=== PATIENT | male | born 1960 | race Caucasian/White ===

== ENCOUNTER 2021-07-08 17:02 | Inpatient (IN) | payer OTHER ==
[~2021-07-08] VITALS: Ht 175.3 cm; Wt 111.4 kg
[2021-07-08] VITALS (22 sets, daily range): BP systolic 141–184; BP diastolic 84–125
[2021-07-08] MEDS ORDERED: TICAGRELOR 90 MG TABLET ONE (17:05)
[2021-07-08] MEDS ORDERED: NITROGLYCERIN 2% (1 GM=INCH) PACKET TP ONE ×2 (17:05→17:30)
[2021-07-08] MEDS ORDERED: ONDANSETRON HCL 4 MG/2 ML VIAL ONE (17:08)
[2021-07-08] MEDS ORDERED: MORPHINE SULFATE 4 MG/ML SYRINGE ONE (17:08)
[2021-07-08] MEDS ORDERED: NITROGLYCERIN 0.4 MG SUBLINGUAL TABLET #25 SL ONE ×2 (17:13→17:30)
[2021-07-08] MEDS ORDERED: METOPROLOL TARTRATE 5 MG/5 ML VIAL ONE (17:20)
[2021-07-08] MEDS ORDERED: METOPROLOL TARTRATE 5 MG/5 ML VIAL IVP ONE (17:30)
[2021-07-08] MEDS ORDERED: TICAGRELOR 90 MG TABLET PO ONE (17:30)
[2021-07-08] MEDS ORDERED: ASPIRIN 81 MG CHEWABLE TABLET PO ONE (17:30)
[2021-07-08] MEDS ORDERED: MORPHINE SULFATE 4 MG/ML SYRINGE IVP ONE (17:30)
[2021-07-08] MEDS ORDERED: LIDOCAINE/PF 1% 30 ML VIAL ONE (17:40)
[2021-07-08] MEDS ORDERED: IOHEXOL 300 MG/ML 100 ML VIAL ONE (17:40)
[2021-07-08] MEDS ORDERED: SODIUM BICARBONATE 50 MEQ/50 ML VIAL ONE (17:40)
[2021-07-08] MEDS ORDERED: IOHEXOL 300 MG/ML 50 ML VIAL ONE ×3 (17:40→18:44)
[2021-07-08] MEDS ORDERED: HEPARIN SODIUM 1000 UNITS/NS 1,000 ML ONE (17:40)
[2021-07-08] MEDS ORDERED: VERAPAMIL HCL 2.5 MG/ML 2 ML VIAL ONE (17:40)
[2021-07-08] MEDS ORDERED: NITROGLYCERIN 50 MG/D5% WATER 250 ML ONE (17:40)
[2021-07-08] MEDS ORDERED: IOHEXOL 300 MG/ML 150 ML VIAL ONE (17:40)
[2021-07-08] MEDS ORDERED: FentaNYL CITRATE PF 100 MCG/2 ML VIAL ONE (17:57)
[2021-07-08] MEDS ORDERED: MIDAZOLAM HCL 2 MG/2 ML VIAL ONE (17:57)
[2021-07-08] MEDS ORDERED: LIDOCAINE 1% 30 ML/SOD BICARB 8.4% 4 ML SQ ONE (18:15)
[2021-07-08] MEDS ORDERED: HEPARIN SODIUM 1000 UNITS/NS 1,000 ML IARTER ONE (18:15)
[2021-07-08] MEDS ORDERED: IOHEXOL 300 MG/ML 150 ML VIAL IARTER ONE (18:15)
[2021-07-08] MEDS ORDERED: FentaNYL CITRATE PF 100 MCG/2 ML VIAL IVP ONE (18:15)
[2021-07-08] MEDS ORDERED: HEPARIN SODIUM,PORCINE 5,000 UNITS/ML VIAL IVP ONE (18:15)
[2021-07-08] MEDS ORDERED: IOHEXOL 300 MG/ML 50 ML VIAL IARTER ONE (18:15)
[2021-07-08] MEDS ORDERED: VERAPAMIL HCL 2.5 MG/ML 2 ML VIAL ICOR ONE (18:30)
[2021-07-08] MEDS ORDERED: NITROGLYCERIN/D5W 50 MG/250 ML IV BOTTLE ICOR ONE (18:30)
[2021-07-08 18:46] LABS: BASOPHILS % (AUTO) 0.4 % (0.0-2.0); EOSINOPHILS % (AUTO) 1.2 % (1.0-6.0); HEMATOCRIT 42.6 % (41-53); LYMPHOCYTES # (AUTO) 1.5 K/uL (1.0-4.8); MEAN CORPUSCULAR HEMOGLOBIN 32.5 pg (26.0-34.0); MEAN CORPUSCULAR HGB CONC 32.9 G/dL (31.0-37.0); MEAN CORPUSCULAR VOLUME 99 fL (80-100); MONOCYTES # (AUTO) 0.6 K/uL (0.1-1.0); NEUTROPHILS # (AUTO) 6.9 K/uL (1.8-7.7); NEUTROPHILS % (AUTO) 75.4 % (40.0-70.0); PLATELET COUNT (AUTO) 150 K/uL (150-450); RED BLOOD CELL COUNT(AUTO) 4.31 MIL/uL (4.50-5.90); RED CELL DISTRIBUTION WIDTH 14.7 % (11.5-14.5)
[2021-07-08 18:58] LABS: CALCIUM, TOTAL 8.2 mg/dL (8.8-10.5); CREATININE 2.32 mg/dL (0.60-1.30); POTASSIUM 4.4 mmol/L (3.5-5.1)
[2021-07-08 19:14] LABS: INR 1.3 (0.9-1.1); PROTHROMBIN TIME 13.4 SEC (9.4-11.6)
[2021-07-08] MEDS ORDERED: ACETAMINOPHEN 325 MG TABLET PO PRN ×2 (19:15→21:30)
[2021-07-08] MEDS ORDERED: MORPHINE SULFATE 2 MG/ML SYRINGE IVP PRN ×2 (19:15→21:30)
[2021-07-08] MEDS ORDERED: DEXTROSE 50%-WATER 25 GM/50 ML SYRINGE IVP PRN (19:15)
[2021-07-08 19:23] LABS: ALBUMIN 3.1 g/dL (3.4-5.0); BILIRUBIN,TOTAL 0.6 mg/dL (0.1-1.0); MAGNESIUM 1.7 mg/dL (1.80-2.40); TOTAL PROTEIN, SERUM 6.6 g/dL (6.4-8.2)
[2021-07-08] MEDS ORDERED: ATORVASTATIN CALCIUM 40 MG TABLET PO SCH (21:00)
[2021-07-08] MEDS ORDERED: ONDANSETRON HCL 4 MG/2 ML VIAL IVP PRN (21:30)
[2021-07-08] MEDS ORDERED: BISACODYL 10 MG RECTAL RECTAL SUPPOSITORY PR PRN (21:30)
[2021-07-08] MEDS ORDERED: HydrALAZINE HCL 20 MG/ML VIAL IVP PRN (21:30)
[2021-07-08] MEDS ORDERED: AmLODIPine BESYLATE 5 MG TABLET PO ONE (21:30)
[2021-07-08] MEDS ORDERED: MAGNESIUM HYDROXIDE SUSPENSION 30 ML UDCUP PO PRN (21:30)
[2021-07-08] MEDS: TICAGRELOR 90 MG TABLET PO SCH (21:59)
[2021-07-08] MEDS: INSULIN LISPRO 100 UNITS/ML SQ PRN (22:00)
[2021-07-08 23:21] LABS: GLUCOSE,POINT OF CARE 189 MG/DL (70-110)
[2021-07-09] VITALS (21 sets, daily range): BP systolic 113–158; BP diastolic 64–117
[2021-07-09] MEDS: HYDROCODONE/ACETAMINOPHEN 5-325 MG TABLET PO PRN (02:34)
[2021-07-09] MEDS: ZOLPIDEM TARTRATE 5 MG TABLET PO PRN ×2 (02:34→21:25)
[2021-07-09 06:12] LABS: BASOPHILS % (AUTO) 0.2 % (0.0-2.0); EOSINOPHILS % (AUTO) 0.8 % (1.0-6.0); HEMATOCRIT 45.6 % (41-53); HEMOGLOBIN 15.3 g/dL (13.5-17.5); LYMPHOCYTES # (AUTO) 1.5 K/uL (1.0-4.8); LYMPHOCYTES % (AUTO) 15.3 % (22.0-44.0); MEAN CORPUSCULAR HEMOGLOBIN 33.1 pg (26.0-34.0); MEAN CORPUSCULAR HGB CONC 33.6 G/dL (31.0-37.0); MEAN CORPUSCULAR VOLUME 99 fL (80-100); NEUTROPHILS # (AUTO) 7.2 K/uL (1.8-7.7); NEUTROPHILS % (AUTO) 73.7 % (40.0-70.0); PLATELET COUNT (AUTO) 153 K/uL (150-450); RED BLOOD CELL COUNT(AUTO) 4.62 MIL/uL (4.50-5.90)
[2021-07-09 06:29] LABS: HEMOGLOBIN A1C 7.3 % (3.8-5.6)
[2021-07-09 06:41] LABS: GLUCOSE,POINT OF CARE 170 MG/DL (70-110)
[2021-07-09] MEDS: INSULIN LISPRO 100 UNITS/ML SQ PRN ×3 (06:44→20:56)
[2021-07-09] MEDS ORDERED: PNEUMOCOCCAL VACCINE POLYVALENT 0.5 ML VIAL [PPSV23] IM. ONE (06:45)
[2021-07-09 07:03] LABS: ALBUMIN 3.5 g/dL (3.4-5.0); BILIRUBIN,TOTAL 0.7 mg/dL (0.1-1.0); CALCIUM, TOTAL 8.6 mg/dL (8.8-10.5); CHOL/HDL RATIO 4.6 (4.2-7.3); CREATININE 2.16 mg/dL (0.60-1.30); POTASSIUM 4.3 mmol/L (3.5-5.1); TOTAL PROTEIN, SERUM 7.5 g/dL (6.4-8.2)
[2021-07-09] MEDS: TICAGRELOR 90 MG TABLET PO SCH ×2 (07:38→20:38)
[2021-07-09] MEDS: METOPROLOL SUCCINATE 50 MG ER TABLET PO SCH (07:38)
[2021-07-09] MEDS: DOCUSATE SODIUM 100 MG CAPSULE PO SCH ×3 (07:38→20:47)
[2021-07-09] MEDS: AmLODIPine BESYLATE 5 MG TABLET PO SCH ×2 (07:38→08:30)
[2021-07-09] MEDS: PANTOPRAZOLE SODIUM 40 MG DR TABLET PO SCH (07:38)
[2021-07-09] MEDS: ASPIRIN 81 MG CHEWABLE TABLET PO SCH (07:38)
[2021-07-09] MEDS ORDERED: LOSARTAN POTASSIUM 50 MG TABLET PO SCH (09:00)
[2021-07-09] MEDS ORDERED: LOSARTAN POTASSIUM 50 MG TABLET PO ONE (10:15)
[2021-07-09 12:26] LABS: GLUCOSE,POINT OF CARE 165 MG/DL (70-110)
[2021-07-09] MEDS: ATORVASTATIN CALCIUM 40 MG TABLET PO SCH (20:38)
[2021-07-09 23:10] LABS: GLUCOMETER DEV NAME(LOC) 5N.1C; GLUCOSE,POINT OF CARE 133 MG/DL (70-110)
[2021-07-09 23:10] LABS: GLUCOMETER DEV NAME(LOC) 5N.1C; GLUCOSE,POINT OF CARE 176 MG/DL (70-110)
[2021-07-10 05:14] VITALS: BP 109/47
[2021-07-10 05:19] LABS: BASOPHILS % (AUTO) 0.7 % (0.0-2.0); HEMATOCRIT 45.3 % (41-53); HEMOGLOBIN 15.2 g/dL (13.5-17.5); LYMPHOCYTES # (AUTO) 1.6 K/uL (1.0-4.8); LYMPHOCYTES % (AUTO) 17.7 % (22.0-44.0); MEAN CORPUSCULAR HEMOGLOBIN 33.4 pg (26.0-34.0); MEAN CORPUSCULAR HGB CONC 33.5 G/dL (31.0-37.0); MEAN CORPUSCULAR VOLUME 100 fL (80-100); MONOCYTES % (AUTO) 11.7 % (2.0-9.0); NEUTROPHILS # (AUTO) 6.1 K/uL (1.8-7.7); NEUTROPHILS % (AUTO) 67.9 % (40.0-70.0); PLATELET COUNT (AUTO) 143 K/uL (150-450); RED BLOOD CELL COUNT(AUTO) 4.55 MIL/uL (4.50-5.90); RED CELL DISTRIBUTION WIDTH 15.1 % (11.5-14.5)
[2021-07-10 05:36] LABS: ALBUMIN 3.3 g/dL (3.4-5.0); BILIRUBIN,TOTAL 0.7 mg/dL (0.1-1.0); CALCIUM, TOTAL 8.7 mg/dL (8.8-10.5); CREATININE 2.65 mg/dL (0.60-1.30); POTASSIUM 4.8 mmol/L (3.5-5.1); TOTAL PROTEIN, SERUM 7.2 g/dL (6.4-8.2)
[2021-07-10 06:11] LABS: GLUCOMETER DEV NAME(LOC) 5S.1B; GLUCOSE,POINT OF CARE 124 MG/DL (70-110)
[2021-07-10 08:30] VITALS: BP 121/85
[2021-07-10] MEDS: TICAGRELOR 90 MG TABLET PO SCH ×2 (08:43→21:27)
[2021-07-10] MEDS: ASPIRIN 81 MG CHEWABLE TABLET PO SCH (08:43)
[2021-07-10] MEDS: PANTOPRAZOLE SODIUM 40 MG DR TABLET PO SCH (08:44)
[2021-07-10] MEDS: DOCUSATE SODIUM 100 MG CAPSULE PO SCH ×2 (08:44→21:28)
[2021-07-10] MEDS: METOPROLOL SUCCINATE 50 MG ER TABLET PO SCH (08:51)
[2021-07-10] MEDS: AmLODIPine BESYLATE 5 MG TABLET PO SCH (08:53)
[2021-07-10] MEDS ORDERED: LOSARTAN POTASSIUM 50 MG TABLET PO SCH (09:00)
[2021-07-10 11:40] VITALS: BP 116/87
[2021-07-10] MEDS: INSULIN LISPRO 100 UNITS/ML SQ PRN ×2 (12:03→21:47)
[2021-07-10 13:21] LABS: GLUCOMETER DEV NAME(LOC) 5S.1B; GLUCOSE,POINT OF CARE 162 MG/DL (70-110)
[2021-07-10 15:59] VITALS: BP 117/89
[2021-07-10 19:45] VITALS: BP 109/78
[2021-07-10] MEDS: HYDROCODONE/ACETAMINOPHEN 5-325 MG TABLET PO PRN (21:27)
[2021-07-10] MEDS: ATORVASTATIN CALCIUM 40 MG TABLET PO SCH (21:28)
[2021-07-10 22:06] LABS: GLUCOMETER DEV NAME(LOC) 5N.3; GLUCOSE,POINT OF CARE 145 MG/DL (70-110)
[2021-07-10] MEDS: ZOLPIDEM TARTRATE 5 MG TABLET PO PRN (22:09)
[2021-07-10 23:47] VITALS: BP 119/54
[2021-07-11 01:41] LABS: GLUCOMETER DEV NAME(LOC) 5N.1C; GLUCOSE,POINT OF CARE 119 MG/DL (70-110)
[2021-07-11 04:25] VITALS: BP 100/66
[2021-07-11 06:06] LABS: GLUCOMETER DEV NAME(LOC) 5N.1C; GLUCOSE,POINT OF CARE 131 MG/DL (70-110)
[2021-07-11 07:30] VITALS: BP 106/64
[2021-07-11] MEDS: AmLODIPine BESYLATE 5 MG TABLET PO SCH (08:01)
[2021-07-11] MEDS: ASPIRIN 81 MG CHEWABLE TABLET PO SCH (08:01)
[2021-07-11] MEDS: PANTOPRAZOLE SODIUM 40 MG DR TABLET PO SCH (08:01)
[2021-07-11] MEDS: METOPROLOL SUCCINATE 50 MG ER TABLET PO SCH (08:01)
[2021-07-11] MEDS: TICAGRELOR 90 MG TABLET PO SCH (08:01)
[2021-07-11] MEDS: DOCUSATE SODIUM 100 MG CAPSULE PO SCH (08:02)
[2021-07-11 11:20] VITALS: BP 115/83
[2021-07-11] MEDS: INSULIN LISPRO 100 UNITS/ML SQ PRN (11:37)
[2021-07-11 11:41] LABS: GLUCOMETER DEV NAME(LOC) 5S.1B; GLUCOSE,POINT OF CARE 174 MG/DL (70-110)
[2021-07-11 13:15] LABS: CREATININE 3.03 mg/dL (0.60-1.30); POTASSIUM 4.3 mmol/L (3.5-5.1)
[2021-07-11] MEDS ORDERED: ASPI-1444 PO (13:20)
[2021-07-11] MEDS ORDERED: ATOR40TA28 PO (13:20)
[2021-07-11] MEDS ORDERED: METO-558 PO (13:21)
[2021-07-11] MEDS ORDERED: AMLO-257 PO (13:21)
[2021-07-11] MEDS ORDERED: TICA90TA PO (13:22)
[2021-07-11 13:35] LABS: COVID AG,FIA SOURCE NASOPHARYNGEAL
== END 2021-07-11 15:55 | DRG 246 ==
LOC: EDBD 17:02 → EMS 17:02 → ICU 17:39 → 5S 07-09 12:55
PROVIDERS: ADMIT Internal Medicine; ATTEND Internal Medicine
PROC: 4A023N7 Measurement of Cardiac Sampling and Pressure, Left Heart, Percutaneous Approach (ICD-10-PCS; principal; 2021-07-08)
PROC: 027036Z Dilation of Coronary Artery, One Artery with Three Drug-eluting Intraluminal Devices, Percutaneous Approach (ICD-10-PCS; 2021-07-08)
PROC: B2111ZZ Fluoroscopy of Multiple Coronary Arteries using Low Osmolar Contrast (ICD-10-PCS; 2021-07-08)
PROC: B2151ZZ Fluoroscopy of Left Heart using Low Osmolar Contrast (ICD-10-PCS; 2021-07-08)
DX: I21.09 ST elevation (STEMI) myocardial infarction involving other coronary artery of anterior wall (principal); N17.0 Acute kidney failure with tubular necrosis; I50.31 Acute diastolic (congestive) heart failure; E87.2 Acidosis; I13.0 Hypertensive heart and chronic kidney disease with heart failure and stage 1 through stage 4 chronic kidney disease, or unspecified chronic kidney disease; E11.22 Type 2 diabetes mellitus with diabetic chronic kidney disease; E66.9 Obesity, unspecified; E78.5 Hyperlipidemia, unspecified; Z20.822 Contact with and (suspected) exposure to COVID-19; N14.1 Nephropathy induced by other drugs, medicaments and biological substances; T50.8X5A Adverse effect of diagnostic agents, initial encounter; E88.81 Metabolic syndrome and other insulin resistance; I25.10 Atherosclerotic heart disease of native coronary artery without angina pectoris; N18.30 Chronic kidney disease, stage 3 unspecified; Z80.3 Family history of malignant neoplasm of breast; I25.2 Old myocardial infarction; Z87.891 Personal history of nicotine dependence; Z79.02 Long term (current) use of antithrombotics/antiplatelets; Z79.899 Other long term (current) drug therapy; Z68.36 Body mass index [BMI] 36.0-36.9, adult
CPT/HCPCS: 71045; 76770; 80048; 80053; 80061; 82043; 82550; 82570; 82962; 83036; 83735; 83880; 84156; 84484; 85025; 85610; 85730; 87081; 92920; 92928; 93005; 93306; 99291; G0378; J0360; J1644; J2250; J2270; J2405; J3010; J3490; Q9967; 36415-L1; 36415-TC; Z7610